=== PATIENT | female | born 1965 | race Hispanic/Latino ===

== ENCOUNTER 2017-01-29 08:35 | Day surgery (SDC) | payer OTHER ==
[~2017-01-29] VITALS: Ht 154.9 cm; Wt 88.0 kg
[~2017-01-29 08:35] MED LIST: 0.9% Sodium Chloride 1,000 ML IV SCH; CHOL500051 PO; LORA-943 PO; MULT-1018 PO; OXYB10TA PO; Sodium Chloride LOK Flush 10 mL Syringe IV PRN; VITA100T8 PO; fentaNYL-PF 50 mCg/mL 2 mL Inj IVPUSH PRN
[2017-01-29 09:19] VITALS: BP 129/78; PULSE 79; RESP 14; O2SAT 99
[2017-01-29 10:06] VITALS: BP 113/64; PULSE 79; RESP 12; O2SAT 99
[2017-01-29 10:17] VITALS: BP 112/67; PULSE 75; RESP 12; O2SAT 100
[2017-01-29 10:19] VITALS: BP 134/67; PULSE 86; RESP 12
--- NOTE | 2017-02-03 08:45 | ENDO ---
[address] [address] ENDOSCOPY PROCEDURE PATIENT: GRIFFIN JAMES : 1965 MR#: [id number] ADMIT: 01/29/2017 JOB ID: [id number] DATE: 01/29/2017 TYPE OF OPERATION: Colonoscopy. PREOPERATIVE DIAGNOSIS(ES): Colorectal cancer screening. POSTOPERATIVE DIAGNOSIS(ES): Normal colonoscopy. ANESTHESIA: Fentanyl and Versed. COMPLICATIONS: None. BLOOD LOSS: Minimal. DESCRIPTION OF PROCEDURE: After risks and benefits were explained to the patient, informed consent was obtained. After anesthesia administered, a colonoscope was then inserted per rectum to cecum. Mucosa carefully examined. Prep of the patient was excellent. After the procedure was done, the scope withdrawn and procedure terminated. FINDINGS: Upon inspection of the anus, no masses, hemorrhoids, ulcers or fissures that were seen. Throughout the entire examination, no polyps, masses or lesions. Retroflexion normal. IMPRESSION: Normal colonoscopy. RECOMMENDATION: Repeat colonoscopy 10 years for colorectal cancer screening.
== END 2017-01-29 23:59 | disposition home or self-care (01) ==
LOC: END 08:35
PROVIDERS: ATTEND Internal Medicine Gastroenterology
DX: Z12.11 Encounter for screening for malignant neoplasm of colon (principal); D50.9 Iron deficiency anemia, unspecified; N39.46 Mixed incontinence; E66.3 Overweight; Z68.36 Body mass index [BMI] 36.0-36.9, adult
CPT/HCPCS: G0121; G0500; J2250; J3010; J7030